=== PATIENT | female | born 1965 | race African-American/Black ===

== ENCOUNTER 2017-07-02 20:45 | Observation (INO) | payer MEDICARE, OTHER ==
[~2017-07-02] VITALS: Ht 165.1 cm; Wt 76.1 kg
--- NOTE | ~2017-07-02 | CR72 ---
[facility] A Service of [facility] & [facility] RADIOLOGY TEXT RESULTS PATIENT: PAULETTE MENDEZ LOCATION: [place] [address] : [birth year] UNIT #: [id number] AGE: [address]: Rosario De Dios MD SEX: F ORDER DR: [id number] [facility] [address] [place], [place] [address] [id number] MR#: [id number] Acc #: [id number] NAME: PAULETTE MENDEZ : 1965 SEX: F STUDY DATE/TIME: 07/02/2017 21:46 UNIT: CED ROOM: 66608 STUDY DESCRIPTION: CR Chest Single View Portable Attending Physician: Rosario De Dios M.D. Ordering Physician: Morales Baig D.O. Primary Care Physician: No Primary Care Physician MEDICAL IMAGING REPORT This report is preliminary unless electronic signature is present EXAM Single view of the chest dated 07/02/2017. COMPARISON Single view chest dated 03/14/2017. HISTORY Lethargy, decreased consciousness, shortness of air since noon today. FINDINGS Single view of the chest was obtained. No acute cardiopulmonary disease. Lungs appear to be relatively well aerated. There is probably calcified right hilar lymph node. Heart is of normal size. Mild arthritic changes are suspected in bilateral shoulders. Dictated by... Yanelis Flores M.D. THIS IS AN ELECTRONICALLY VERIFIED REPORT Yanelis Flores M.D. at 07/03/2017 7:09 PM CPR/gz TD: 07/03/2017 10:49 JOB #: [id number] MEDICAL IMAGING REPORT Page 1 of 1 COPY
--- NOTE | ~2017-07-02 | DS ---
Unit #: [id number] #: [id number] Patient: PAULETTE MENDEZ [id number] [address] [address] [id number] I MR#: [id number] NAME: PAULETTE MENDEZ ROOM: 307 Age: 51 Sex: F Admission Date: 07/03/2017 : 1965 Discharge Date: Attending Physician: Rosario De Dios M.D. Primary Care Physician: No Primary Care Physician DISCHARGE SUMMARY DISCHARGE DIAGNOSES 1. Change in mental status, secondary to toxic metabolic encephalopathy, likely from taking extra Percocet. Also, urine tox screen positive for cocaine and marijuana. Also, she has urinary tract infection. No new cerebrovascular accident. 2. History of previous cerebrovascular accident. 3. Hypertension. 4. Urinary tract infection. 5. Chronic leg pain. 6. 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 7. Depression. 8. History of polysubstance abuse. 9. Degenerative joint disease. 10. History of gastroesophageal reflux disease. 11. Peptic ulcer disease. 12. Diarrhea during the hospitalization course. 13. Mild metabolic acidosis. CONSULTATION None. PROCEDURE None. DIAGNOSTIC STUDIES LABORATORY: Urine culture negative. Sodium 142, potassium 3.8, creatinine 0.7. Liver enzymes normal. WBC 4.9, hemoglobin 13.4, platelets 344,000. IMAGING: MRI of the brain: No evidence of acute changes. Old ischemic change is present. ALLERGIES Flexeril and latex. DISCHARGE MEDICATIONS 1. Neurontin 600 three times daily. 2. Celexa 10 mg p.o. daily. 3. Latuda 20 mg p.o. at bedtime. 4. Lopressor 50 p.o. b.i.d. 5. Lotrel 10/20 one capsule p.o. daily. 6. Lipitor 10 mg daily. 7. Hydralazine 25 p.o. b.i.d. Unit #: [id number] #: [id number] Patient: PAULETTE MENDEZ 8. Omeprazole 20 daily. 9. Isosorbide dinitrate 20 mg p.o. daily. 10. Vitamin D2 at 50,000 units every week. 11. Nitrofurantoin 100 p.o. b.i.d. HOSPITALIZATION COURSE A 51 year old admitted because of change of mental status. Toxic metabolic encephalopathy: Multifactorial, likely from urinary tract infection and extra dose of Percocet and also polysubstance abuse. Currently, patient is alert and back to her baseline. Urinary tract infection: Cultures negative. Continue with nitrofurantoin. History of CVA: Continue with home health. Physical therapy saw this patient, discharged with no further recommendations. Patient is at baseline. Hypertension: Mildly elevated. Continue with her home medications of Lotrel. History of coronary artery disease: Stable. DISPOSITION Discharge home with home health. FOLLOWUP Follow with family physician in one week time. Dictated by... Belkis Hinson TD: 07/04/2017 11:23 JOB #: [id number] DISCHARGE SUMMARY Page 1 of 1 X Rosario De Dios MD X DISCHARGE SUMMARY
--- NOTE | ~2017-07-02 | EKG ---
PATIENT: PAULETTE MENDEZ UNIT #: [id number] Ventricular Rate: 63 BPM Atrial Rate: 63 BPM P-R Interval: 176 ms QRS Duration: 86 ms Q-T Interval: 458 ms QTC Calculation(Bezet): 468 ms P Marbury: 40 degrees Calculated R Marbury: -47 degrees Calculated T Marbury: 19 degrees Diagnosis Line: Normal sinus rhythm Diagnosis Line: Left anterior fascicular block Diagnosis Line: Abnormal ECG Diagnosis Line: When compared with ECG of 11-OCT-2016 07:14, Diagnosis Line: Vent. rate has decreased BY 35 BPM Diagnosis Line: Left anterior fascicular block is now Present Diagnosis Line: Confirmed by DARLINE PERES MD ([id number]) on Diagnosis Line: 07/05/2017 10:48:32 AM INTERPRETING MD: JA BUENO
--- NOTE | ~2017-07-02 | CT71 ---
[facility] A Service of [facility] & [facility] RADIOLOGY TEXT RESULTS PATIENT: PAULETTE MENDEZ LOCATION: [facility] 307-01 : [birth year] UNIT #: [id number] AGE: [address]: Rosario De Dios MD SEX: F ORDER DR: [id number] [facility] [address] [place], [place] [address] [id number] I MR#: [id number] Acc #: [id number] NAME: PAULETTE MNEDEZ : 1965 SEX: F STUDY DATE/TIME: 07/02/2017 23:08 UNIT: CEDOF ROOM: 62637 STUDY DESCRIPTION: CT Head Wo Contrast Attending Physician: Rosario De Dios M.D. Ordering Physician: Morales Baig D.O. Primary Care Physician: Primary Care Physician No MEDICAL IMAGING REPORT This report is preliminary unless electronic signature is present EXAM CT head without contrast INDICATIONS Confusion, lethargy today. PROCEDURE Unenhanced CT head. This CT exam was performed with one or more of the following radiation dose reduction techniques: Automatic exposure control, adjustment of mA and/or kV according to patient size, and iterative reconstruction. COMPARISON 10/09/2016 FINDINGS Redemonstration of an old left MCA territory infarct. There is no acute hemorrhage, abnormal mass effect, extraaxial fluid collection or hydrocephalus. There is a lacunar infarct in the left basal ganglia, new since the previous study but does appear to be old. Similar lacunar infarct is seen in the right basal ganglia. No definitive evidence for an acute or early subacute large-territory infarct. There is a new but probably old infarct in the right occipital lobe since the previous study. No depressed calvarial fracture. Patchy opacification in the ethmoid air cells and inferior frontal sinuses. Partially included air-fluid level in the right maxillary sinus. IMPRESSION 1. No definite acute intracranial finding. 2. Old infarct in the left MCA territory. 3. Lacunar infarcts in both basal ganglia as well as what appears to be an old infarct in the right occipital lobe are new compared with the 10/09/2016 comparison study. If further characterization of these [facility] A Service of [facility] & [facility] RADIOLOGY TEXT RESULTS PATIENT: PUALETTE MENDEZ LOCATION: [place] [address] : [birth year] UNIT #: [id number] AGE: [address]: Rosario De Dios MD SEX: F ORDER DR: abnormalities is desired clinically or if there is ongoing suspicion for an acute or early subacute infarct, a brain MRI may be helpful. 4. Mucosal sinus opacification and air-fluid levels as above. Correlate for sinusitis. Dictated by... Lewis Wu M.D. THIS IS AN ELECTRONICALLY VERIFIED REPORT Lewis Wu M.D. at 07/04/2017 10:00 PM EED/rcahel TD: 07/03/2017 11:29 JOB #: [id number] MEDICAL IMAGING REPORT Page 1 of 1 COPY
--- NOTE | ~2017-07-02 | MR18 ---
[facility] A Service of [facility] & [facility] RADIOLOGY TEXT RESULTS PATIENT: PAULETTE MENDEZ LOCATION: [place] 307-01 : [birth year] UNIT #: [id number] AGE: [address]: Rosario De Dios MD SEX: F ORDER DR: [id number] [facility] [address] [place], [place] [address] [id number] I MR#: [id number] Acc #: [id number] NAME: PAULETTE MENDEZ : 1965 SEX: F STUDY DATE/TIME: 07/03/2017 8:10 UNIT: CEDOF ROOM: 31187 STUDY DESCRIPTION: MR Brain Wo Contrast Attending Physician: Rosario De Dios M.D. Ordering Physician: Parisa Nguyễn M.D. Primary Care Physician: Primary Care Physician No MRI CENTER REPORT This report is preliminary unless electronic signature is present. EXAM MRI of the brain without contrast HISTORY: Rule out stroke. Decreased level of consciousness, ab normal head CT and altered mental status. History of hypertension. Symptoms began on 07/02/17 at 17:00 with right sided weakness and slurred speech. COMMENT MRI of the brain was performed without contrast using routine 1.5T imaging technique. There is no evidence for a recent ischemic insult on the diffusion series. There are partly seen post operative changes in the upper cervical spine. The calvaria is thickened and there is diffuse cellular marrow placement. Please correlate for clinical history of myeloproliferative disorder, chronic anemia, or renal disease. Immunocompromised state could result in this appearance also. The findings are chronic. There is chronic insult to the left MCA territory with encephalomalacia. There are no chronic insults to the bilateral globus pallidus consistent with a previous global hypoxic ischemia insult in the setting of known previous drug overdose. This is associated with marginal mineral deposition. No recent intracranial hemorrhage is suspected. There is no extraaxial fluid collection. The study is motion degraded. Subtle encephalomalacia is now seen in the cerebellar hemispheres at the site of previously restricted diffusion consistent with expected evolution of insults. There is no extraaxial fluid collection or intracranial mass effect. The major arterial intracranial flow voids are maintained. There is a small amount of fluid or inflammatory change at the right mastoid tip. There is an air fluid level in the right maxillary sinus consistent with a component of acute sinusitis and there is partial opacification of the ethmoid air cells with mucosal thickening in general. Overall, there is some STS. [facility] A Service of [facility] & [facility] RADIOLOGY TEXT RESULTS PATIENT: PAULETTE MENDEZ LOCATION: [facility] : [birth year] UNIT #: [id number] AGE: [address]: Rosario De Dios MD SEX: F ORDER DR: improvement in paranasal sinus disease but the right maxillary sinus disease is otherwise worse. Mild nonspecific white matter disease redemonstrated. IMPRESSION 1. No evidence for a recent ischemic insult on the diffusion series. 2. Expected evolution of previous insults noted on 10/12/16. There is now chronic malacic change left MCA territory as well as chronic insults to the bilateral globus pallidus. Subtle malacic change to the peripheral cerebellar hemispheres at the site of prior insult as well. 3. No extraaxial fluid collection or intracranial mass effect. The study is somewhat motion degraded. 4. Evidence of sinusitis including acute sinusitis in the right maxillary sinus. FINDINGS Dictated by... Marilu Mcbride M.D. THIS IS AN ELECTRONICALLY VERIFIED REPORT Marilu Mcbride M.D. at 07/03/2017 3:28 PM MIRI/ruth TD: 07/03/2017 11:07 JOB #: [id number] MRI CENTER REPORT Page 1 of 1 COPY
--- NOTE | ~2017-07-02 | HP ---
Unit #: [id number] #: [id number] Patient: PAULETTE MENDEZ [id number] [address] [place], [place] [address] [id number] I MR#: [id number] NAME: PAULETTE MENDEZ ROOM: [address]1434 Age: 51 Sex: F Admission Date: 07/03/2017 : 1965 Attending Physician: Parisa Nguyễn M.D. Primary Care Physician: No Primary Care Physician HISTORY AND PHYSICAL CHIEF COMPLAINT Altered mental status. HISTORY This 51-year-old female with hypertension, previous CVAs, is admitted for altered mental status. The patient was in her usual state of health yesterday. She was last seen normal at 5:00 p.m. When her daughter returned at 6:30 p.m. the patient was unresponsive but breathing on her own and had a normal pulse. The daughter then called EMS who brought the patient to this emergency department late last evening with stable vital signs. The patient was quite lethargic on exam, had slight improvement after Narcan. In the course of her evaluation she is found to have a questionable UTI. Urine tox screen is positive for cocaine, marijuana and opiates. The patient is prescribe Percocet 5 mg. Her daughter is concerned as the patient has memory issues, and often takes more medications than she should. The patient was last admitted to this facility 09/2016 for a drug overdose, requiring mechanical ventilation. 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 Had two out of two positive blood cultures for Strep, but DIANE was negative for vegetation. Sustained a right posterior occipital cortex CVA and left posterior deep white matter CVA. Afterwards went to rehab for a period of time. PAST MEDICAL HISTORY 1. DJD. 2. Essential hypertension. 3. GERD and peptic ulcer disease. Last EGD was negative 09/2016. 4. Previous history of polysubstance abuse. 5. Admission 03/2007 for left MCA CVA with right-sided weakness. 6. Immobilization syndrome with flexion contractures of the legs. 7. Admission 09/2016 following an overdose with aspiration pneumonia requiring mechanical ventilation. Patient sustained an inferior wall STEMI due to cocaine induced coronary artery vasospasm. Ejection fraction 50% to 55%. She had normal coronary arteries on cardiac catheterization. Also sustained a subacute right posterior occipital cortex CVA and CVA in the left parietal deep white matter. Had aspiration pneumonia with 2 out of 2 positive blood cultures for Strep. There was no vegetation seen on DIANE. 8. Bilateral arthroscopic knee surgery. Unit #: [id number] #: [id number] Patient: PAULETTE MENDEZ 9. C-spine surgery. 10. Back surgery. 11. Total abdominal hysterectomy. ALLERGIES Flexeril and latex. HOME MEDICATIONS Percocet 5 mg; Neurontin 600 mg t.i.d.; Latuda 20 mg q.h.s.; Celexa 10 mg daily; Norvasc benazepril 10/20 daily; omeprazole 20 mg daily; hydralazine 25 mg b.i.d.; Lipitor 10 mg daily; Imdur 20 mg daily; Lopressor 50 mg b.i.d.; vitamin D 50,000 units each week. FAMILY HISTORY Negative for CAD. SOCIAL HISTORY The patient lives with her . She was smoking two packs per day of tobacco. Smokes a few cigarettes daily now. Does not drink alcohol. Previous history of polysubstance abuse. REVIEW OF SYSTEMS Impossible to obtain as patient is quite somnolent. PHYSICAL EXAMINATION GENERAL: Somnolent 51-year-old female who does arouse, answers a question or two and then falls back to sleep. VITAL SIGNS: Temperature 98.1, pulse 68, respirations 11, blood pressure 135/96, O2 saturation 99% on room air. HEENT: Eyes - PERRLA. Extraocular muscles are intact. Pharynx is benign. NECK: Supple without adenopathy or thyromegaly. CHEST: Clear. CARDIAC: Normal S1 and S2 with a loud systolic murmur heard throughout the precordium. ABDOMEN: Bowel sounds are present. No hepatosplenomegaly, tenderness, or masses. EXTREMITIES: Without edema. Pedal pulses are present. Flexion contractions noted over the lower extremities bilaterally. NEUROLOGIC: Patient is somnolent but arousable. Her cranial nerves are intact. She is slightly weaker on the right than the left. Has bilateral flexion contractions of the lower extremities. DIAGNOSTIC STUDIES LABORATORY STUDIES: Hematocrit is 39.8, normal white count and platelet count. Normal coags. SMA 12 - potassium is 3.4, lactic acid normal. Alcohol level negligible as is acetaminophen and salicylate levels. Cardiac marker negative. Urine tox screen positive for cocaine, marijuana, opiates. Urinalysis 2+ leukocyte esterase with 10-25 white cells, 2+ bacteria with moderate squamous epithelial cells making this a poor specimen. IMAGING STUDIES: Chest x-ray - no acute disease. Head CT - nothing acute. Old infarct left MCA territory. Bilateral basal ganglion infarct and right occipital lobe infarct new since previous CT scan, but these appear to be chronic. Unit #: [id number] #: [id number] Patient: PAULETTE MENDEZ ASSESSMENT 1. Altered mental status, which may be multifactorial. The patient does have some memory issues. She is prescribed Percocet, and family is concerned that she may have taken extra Percocet. However, urine tox screen is also positive for cocaine and marijuana. She may also have a UTI. Rule out new CVA. 2. Prior CVAs. 3. Previous inferior wall STEMI 09/2016 after presentation to this ER after a drug overdose. The patient had cocaine induced coronary vasospasm. Has normal coronary arteries on cardiac catheterization and normal ejection fraction. 4. Immobilization syndrome with lower extremity flexion contractures following stroke. 5. Chronic leg pain. 6. Depression. 7. Essential hypertension. PLANS 1. Rocephin pending urine cultures. 2. Hold Percocet. 3. MRI of the brain. 4. Change Lopressor and hydralazine to an IV route, until able to take p.o. 5. IV fluids. 6. SCDs for DVT prophylaxis. 7. Daughter is Sonia Hinton who wishes to be her emergency contact. Dictated by Parisa Nguyễn M.D. AML/ts TD: 07/03/2017 05:27 JOB #: [id number] HISTORY AND PHYSICAL Page 1 of 1 X Parisa Nguyễn MD HISTORY AND PHYSICAL
[~2017-07-02 20:45] MED LIST: ALBUTEROL17 GM INH; ALPRAZOLAM PO; AMOXICILLIN875 MG PO; APRESOLINE; ATENOLOL; BUSPAR; BUSPAR PO; CLARITIN10 MG PO; CLONIDINE; COUMADIN PO; FLEXERIL10 M1 PO; IBUPROFEN800 MG PO; ISORDIL PO; LIPITOR80 MG PO; LOPRESSOR PO; LORCET 10/650 T1 TAB PO; LORTAB 10-5001 EACH; LORTAB 5/500 TA1 TA1 PO; LORTAB 7.5-5001 TAB PO; NORVASC PO; PREDNISONE10 MG/DOSE PO; PRILOSEC; PRILOSEC PO; PROTONIX20 MG PO; TESSALON200 MG PO; ULTRAM; VOLTAREN75 MG PO
[2017-07-02 22:38] LABS: BASOPHIL% 0.9 % (0-2.5); EOSINOPHIL# 0.4 X10e3 (0-0.7); EOSINOPHIL% 6.7 % (0.0-7.0); HEMATOCRIT 39.8 % (35.0-45.0); LYMPHOCYTE# 1.7 X10e3 (1.0-3.5); LYMPHOCYTE% 29.4 % (17.0-45.0); MEAN CELL VOLUME 92.7 FL (83-96); MEAN CORPUSCULAR HEMOGLOBIN 32.6 PG (28-34); MEAN CORPUSCULAR HGB CONC 35.1 g/dL (30-36); MONOCYTE# 0.3 X10e3 (0-1.0); MONOCYTE% 4.5 % (3.0-12.0); NEUTROPHIL# 3.4 X10e3 (1.5-7.1); NEUTROPHIL% 58.5 % (40-75); PLATELET COUNT 353 X10e3 (140-420); RED BLOOD COUNT 4.29 X10e (3.90-5.30); RED CELL DISTRIBUTION WIDTH 12.7 % (11.0-15.5); WHITE BLOOD COUNT 5.8 X10e3 (4.0-10.5)
[2017-07-02 22:39] LABS: DIFF IND NO
[2017-07-02 22:52] LABS: PARTIAL THROMBOPLASTIN TIME 23.7 SECONDS (23.5-31.3); PROTHROMBIN TIME (PATIENT) 10.6 SECONDS (10.0-11.7)
[2017-07-02 23:03] LABS: ALBUMIN SERUM 3.8 g/dL (3.5-5.0); ALKALINE PHOSPHATASE 70 U/L (32-92); ALT (SGPT) 12 U/L (10-40); AST (SGOT) 17 U/L (10-42); BILIRUBIN, DIRECT 0.1 mg/dL (0.0-0.2); BILIRUBIN,TOTAL 0.1 mg/dL (0.2-2.0); BLOOD UREA NITROGEN 12 mg/dL (9-23); CALCIUM SERUM 9.1 mg/dL (8.4-10.2); CARBON DIOXIDE 22 mmol/L (22-31); CHLORIDE 106 mmol/L (100-111); CREATININE SERUM 0.8 mg/dL (0.6-1.4); GLOM FILT RATE Estimated 100.4 mL/min (>60); GLUCOSE FASTING 92 mg/dL (70-110); POTASSIUM 3.4 mmol/L (3.5-5.1); PROTEIN TOTAL SERUM 7.9 g/dL (6.0-8.3); SALICYLATE <4.0 mg/dL; SODIUM 136 mmol/L (135-145)
[2017-07-02 23:05] LABS: POC - CKMB 3.8 ng/mL (0.0-7.9); POC - TROPONIN <0.05 ng/mL (<=0.05)
[2017-07-02 23:06] LABS: ACETAMINOPHEN <10 ug/mL; ALCOHOL BLOOD <5 mg/dL (0)
[2017-07-02 23:50] LABS: URINE SOURCE CLEAN CATCH
[2017-07-02 23:56] LABS: URINE APPEARANCE CLOUDY; URINE BILIRUBIN NEG (NEG); URINE BLOOD NEG (NEG); URINE COLOR YELLOW; URINE GLUCOSE NEG (NEG); URINE KETONE NEG (NEG); URINE LEUKOCYTE ESTERASE 2+ (NEG); URINE NITRATE NEG (NEG); URINE PH 7.5 (5-8); URINE PROTEIN NEG (NEG); URINE SPECIFIC GRAVITY 1.009 (1.003-1.035)
[2017-07-02 23:59] LABS: CULTURE INDICATED? YES; U HYALINE CASTS AUWI 0-2 /[LPF]; URBCS1 AUWI 0-2 /[HPF] (0-2); URINE BACTERIA AUWI 2+ (NEGATIVE); URINE SQUAMOUS EPITHELIAL CELL MOD /[HPF]
[2017-07-03] MEDS ORDERED: LATUDA20 MG PO (00:47)
[2017-07-03] MEDS ORDERED: GABAPENTIN600 MG PO (00:47)
[2017-07-03] MEDS ORDERED: AMLODIPINE-BEN1 EAC3 PO (00:48)
[2017-07-03] MEDS ORDERED: CELEXA10 M1 PO (00:48)
[2017-07-03] MEDS ORDERED: OMEPRAZOLE20 M2 PO (00:48)
[2017-07-03] MEDS ORDERED: ATORVASTATIN CA10 MG PO (00:49)
[2017-07-03] MEDS ORDERED: ISORDIL PO (00:49)
[2017-07-03] MEDS ORDERED: HYDRALAZINE HCL25 MG PO (00:49)
[2017-07-03] MEDS ORDERED: LOPRESSOR PO (00:50)
[2017-07-03] MEDS ORDERED: VITAMIN D22000 UNIT PO (00:50)
[2017-07-03 00:51] LABS: AMPHETAMINE NEG (NEG); BARBITURATES NEG (NEG); BENZODIAZEPINES NEG (NEG); COCAINE POS (NEG); MARIJUANA POS (NEG); OPIATES POS (NEG); TRICYCLIC ANTIDEPRESSANTS NEG (NEG); U METHADONE NEG (NEG)
[2017-07-04 05:26] LABS: HEMATOCRIT 39.1 % (35.0-45.0); HEMOGLOBIN 13.4 gm/dL (12.0-16.0); MEAN CELL VOLUME 93.9 FL (83-96); MEAN CORPUSCULAR HEMOGLOBIN 32.1 PG (28-34); MEAN CORPUSCULAR HGB CONC 34.2 g/dL (30-36); MEAN PLATELET VOLUME 7.3 FL (6.5-11.5); RED BLOOD COUNT 4.16 X10e (3.90-5.30); WHITE BLOOD COUNT 4.9 X10e3 (4.0-10.5)
[2017-07-04 06:08] LABS: ALBUMIN SERUM 3.1 g/dL (3.5-5.0); BILIRUBIN,TOTAL 0.2 mg/dL (0.2-2.0); BUN/CREATININE RATIO 15.71; CALCIUM SERUM 8.9 mg/dL (8.4-10.2); CREATININE SERUM 0.7 mg/dL (0.6-1.4); GLOM FILT RATE Estimated 117.9 mL/min (>60); POTASSIUM 3.8 mmol/L (3.5-5.1); PROTEIN TOTAL SERUM 6.6 g/dL (6.0-8.3)
[2017-07-04] MEDS ORDERED: CELEXA20 MG PO (13:37)
[2017-07-04] MEDS ORDERED: NITROFURANTOIN100 M3 PO (13:40)
[2017-07-04] MEDS ORDERED: CELEXA10 MG PO (13:57)
[2017-07-04] MEDS ORDERED: LATUDA20 MG PO (13:57)
[2017-07-04] MEDS ORDERED: ATORVASTATIN CA10 MG PO (13:58)
== END 2017-07-04 15:35 | disposition home or self-care (01) ==
LOC: CED 20:45 → CEDOF 07-03 02:40 → CED 07-03 02:40 → CEDOF 07-03 06:52 → C3A PCU 07-03 13:37
PROVIDERS: Emergency Medicine; Internal Medicine
DX: G92 Toxic encephalopathy (principal); R41.82 Altered mental status, unspecified; I10 Essential (primary) hypertension; N39.0 Urinary tract infection, site not specified; G89.29 Other chronic pain; M79.606 Pain in leg, unspecified; M62.3 Immobility syndrome (paraplegic); K27.9 Peptic ulcer, site unspecified, unspecified as acute or chronic, without hemorrhage or perforation; K21.9 Gastro-esophageal reflux disease without esophagitis; F32.9 Major depressive disorder, single episode, unspecified; E87.2 Acidosis; F17.210 Nicotine dependence, cigarettes, uncomplicated; Z86.73 Personal history of transient ischemic attack (TIA), and cerebral infarction without residual deficits; Z87.898 Personal history of other specified conditions; Z88.8 Allergy status to other drugs, medicaments and biological substances; Z91.040 Latex allergy status; Z90.710 Acquired absence of both cervix and uterus
CPT/HCPCS: 36415; 70450; 70551; 71010; 80048; 80053; 80076; 80307; 81003; 82553; 83605; 84484; 85025; 85027; 85610; 85730; 87086; 93005; 96374; 96375; 96376; 97161; 97166; 99285; G0378; G0480; G8978-GP; G8979-GP; G8980-GP; G8987-GO; G8988-GO; G8989-GO; J0696; J2310; J3490